=== PATIENT | male | born 2000 | race Caucasian/White ===

== ENCOUNTER 2023-02-11 12:23 | Inpatient (IN) | payer OTHER, SELFPAY ==
[2023-02-11 12:35] VITALS: BP 186/117; PULSE 82; RESP 18; TEMP 36.7; O2SAT 94
--- NOTE | 2023-02-11 13:12 | W.ED.PSYCHS ---
HPI - Psych General: Chief Complaint: Psychiatric Symptoms Stated Complaint: SI Time Seen by Provider: 02/11/23 12:47 Source: patient and family Mode of arrival: ambulatory Limitations: no limitations History of Present Illness: This patient was brought to the emergency department by his parents because of their concern about his over the past several weeks and more noticeably over the past 10 to 15 days he has had both auditory and visual hallucinations. He also told them that there is been suggestions of these voices telling him to harm himself but he has no specific plan of carrying that suggestion out. There is been symptoms of altered reality with section of normal domestic animals not being of this world as well as other alterations in his perceptions. He has been living in his own domicile but is now been staying with the parents for the last couple of days. They still feel that he is safe to be left alone. He has no history of mental health issues in the past had a normal childhood and young adulthood. Recently had a break-up with a long-term live-in girlfriend. There is a question of whether he may have had a exposure to methamphetamine recently. He does use marijuana fairly regularly. Minimal if any alcohol use. No energy drinks or other stimulants to include [id number] cough and cold medications etc. He has not any recent travel, recent trauma, recent illness. There is no family history of mental health disorders. MD complaint: feels depressed and altered mental status Duration: intermittent Context: not taking psychiatric medications Associated psychiatric symptoms: depression, auditory hallucinations and visual hallucinations Associated symptoms: Reports auditory hallucinations, visual hallucinations and depression Review of Systems Const: Denies: fever(s) or chills Eyes: Denies: change in vision or blurry vision ENMT: Denies: odynophagia, nasal discharge or nasal congestion Card: Denies: chest pain or palpitations Resp: Denies: dyspnea, productive cough or non-productive cough GI: Denies: abdominal pain, nausea, vomiting or diarrhea : Denies: flank pain, difficulty urinating, dysuria or urinary frequency Musc: Denies: neck pain, back pain or extremity pain Skin/Breast: Denies: rash Neuro: Denies: headache(s), numbness in extremities or weakness in extremities Psych: Reports: depression, sleeping less, paranoia, visual hallucinations and auditory hallucinations Physical Exam Narrative: EXAM NARRATIVE: Very depressed affect. Does make good eye contact. Speech is very monotonous and low volume. Const: COMMON NORMALS: no acute distress, average body habitus, patient oriented x3 and alert GENERAL APPEARANCE: cooperative HENMT: COMMON NORMALS: normocephalic, atraumatic and Normal nasal mucous membranes and turbinates present HEAD & SCALP: normocephalic and atraumatic NOSE: Normal nasal mucous membranes and turbinates present Eye: COMMON NORMALS: Equal, round and reactive pupils present, EOMs intact bilaterally and conjunctivae normal CONJUNCTIVA: Yes conjunctivae normal PUPIL: Yes Equal, round and reactive pupils present Neck/C-Spine: COMMON NORMALS: full ROM, no lymphadenopathy and supple Chest: COMMONS NORMALS: normal inspection of the chest Resp: COMMON NORMALS: normal respiratory effort, No retractions, No use of accessory muscles and clear to auscultation bilaterally EFFORT & INSPECTION: Yes able to speak in complete sentences AUSCULTATION: clear to auscultation bilaterally Cardio: COMMON NORMALS: regular rate, regular rhythm, No murmurs present (Cardio) and Peripheral pulses 2+ throughout RATE: regular rate RHYTHM: regular rhythm PERIPHERAL PULSES: Peripheral pulses 2+ throughout GI: COMMON NORMALS: Normal to inspection, nondistended, normoactive bowel sounds present, Soft to palpation and non-tender PALPATION: Yes Soft to palpation : COMMON NORMALS: Yes no CVA tenderness BLADDER/KIDNEY EXAM: Yes no CVA tenderness Back/Pelvis: COMMON NORMALS: no CVA tenderness, thoracic and lumbar spine normal to inspection, no thoracic nor lumbar tenderness and thoraco-lumbar ROM normal Extremity: COMMON NORMALS: normal to inspection, full ROM, capillary refill normal, no clubbing, cyanosis or edema and no calf tenderness Neuro: COMMON NORMALS: patient oriented x3, moves all extremities, no focal motor deficits and no sensory deficits noted SENSORIUM/ORIENTATION: Yes alert CRANIAL NERVES: Yes CN normal except as noted Psych: ATTITUDE: Yes Withdrawn affect present ACTIVITY/MOTOR BEHAVIOR: Yes appropriate eye contact SPEECH: Yes soft MOOD & AFFECT: Yes depressed mood and Yes Flat affect present THOUGHT PROCESS: Circumstantial thought process present THOUGHT CONTENT: Yes Hallucination(s) present INSIGHT: Limited insight present (Psych) JUDGEMENT: Limited judgement present (Psych) Skin: COMMON NORMALS: no rashes or lesions noted and no wounds GENERAL SKIN EXAM: no rashes or lesions noted Course Consultations: Consultation #1: Discussed with Dr. Hernandez and reviewed his current history and findings. Plan will be to admit him on a psych hold pending further evaluation and delineation of his clinical condition. Time: 16:46 Vital Signs: Vital signs: Vital Signs Temperature 98.1 F 02/11/23 12:35 Pulse Rate 82 02/11/23 12:35 Respiratory Rate 18 02/11/23 12:35 Blood Pressure 186/117 02/11/23 12:35 Pulse Oximetry 94 02/11/23 12:35 Oxygen Delivery Me thod Room Air 02/11/23 12:35 MDM - Psych Medical Decision Making This patient was transported to the emergency department by his parents who are concerned about changes in his overall mental status over the past several weeks. There was symptoms of both auditory and visual hallucinations which the patient readily admitted. Is no prior history of mental health disorders or similar symptoms. There had been a recent break-up with a significant other but otherwise no other major events in his life. There was a history of marijuana use but no other street drug use other than admitted single episode of methamphetamine use. His clinical examination revealed a patient who is had depressed affect but made good eye contact and was cooperative but did have some loosening of associations readily admitted to hallucinations with some thought insertion but no action or any thought insertion suggestions. His his clinical exam otherwise did not suggest any stigmata of medical condition otherwise. His screening laboratories are reassuring urine drug screen only was positive for marijuana. At this point in time no evidence of any precluding medical disorder that would prevent him from being placed on a medical hold in the mental health unit for further evaluation. Case was discussed with attending psychiatrist who agreed to the plan of care. Lab Data I reviewed the patient's lab results. 02/11/23 13:16 02/11/23 13:16 Laboratory Results WBC 9.90 10^3/uL (3.29-11.43) 02/11/23 13:16 RBC 5.35 10^6/uL (3.85-5.65) 02/11/23 13:16 Hgb 16.10 g/dL (11.27-16.99) 02/11/23 13:16 Hct 48.3 % (37-53) 02/11/23 13:16 MCV 90.3 fl (82-101) 02/11/23 13:16 MCH 30.1 pg (27-33) 02/11/23 13:16 MCHC 33.3 g/dL (30-55) 02/11/23 13:16 RDW 12.1 % (12.1-15.1) 02/11/23 13:16 Plt Count 339 10^3/cmm (157-399) 02/11/23 13:16 MPV 10.2 fL (7.4-10.4) 02/11/23 13:16 Neut % (Auto) 73.3 % 02/11/23 13:16 Lymph % (Auto) 19.0 % 02/11/23 13:16 [place] % (Auto) 5.8 % 02/11/23 13:16 Eos % (Auto) 0.3 % 02/11/23 13:16 Baso % (Auto) 1.2 % 02/11/23 13:16 Neut # (Auto) 7.26 10^3/uL (1.8-7.7) 02/11/23 13:16 Lymph # (Auto) 1.9 10^3/uL (0.8-4.8) 02/11/23 13:16 [place] # (Auto) 0.6 10^3/uL (0.2-0.9) 02/11/23 13:16 Eos # (Auto) 0.0 10^3/uL (0.0-0.8) 02/11/23 13:16 Baso # (Auto) 0.1 10^3/uL (0.0-0.1) 02/11/23 13:16 Nucleated RBC % (auto) 0 % 02/11/23 13:16 Nucleated RBCs # 0.0 /100WBC 02/11/23 13:16 Sodium 139 mmol/L (136-145) 02/11/23 13:16 Potassium 4.0 mmol/L (3.5-5.1) 02/11/23 13:16 Chloride 106 mmol/L (98-107) 02/11/23 13:16 Carbon Dioxide 23 mmol/L (22-29) 02/11/23 13:16 Anion Gap 14.0 (5-19) 02/11/23 13:16 BUN 7 mg/dL (6-20) 02/11/23 13:16 Creatinine 0.7 mg/dL (0.7-1.2) 02/11/23 13:16 GFR Calculation 142.4 mL/min (90-130) H 02/11/23 13:16 Glucose 110 mg/dL (65-115) 02/11/23 13:16 Calculated Osmolality 287 mOsm/kg (285-295) 02/11/23 13:16 Calcium 9.3 mg/dL (8.5-10.5) 02/11/23 13:16 Total Bilirubin 0.5 mg/dL (0.15-1.2) 02/11/23 13:16 AST 12 U/L (0-40) 02/11/23 13:16 ALT 15 U/L (0-41) 02/11/23 13:16 Alkaline Phosphatase 61 U/L (40-130) 02/11/23 13:16 Total Protein 7.2 g/dL (6.6-8.7) 02/11/23 13:16 Albumin 4.5 g/dL (3.5-5.2) 02/11/23 13:16 Globulin 2.7 g/dL (1.3-4.6) 02/11/23 13:16 Salicylates < 0.3 mg/dL (3-10) L 02/11/23 13:16 Urine Opiates Screen Negative ng/mL (Negative) 02/11/23 16:01 Acetaminophen < 5.0 ug/mL (10-30) L 02/11/23 13:16 Ur Barbiturates Screen Negative ng/mL (Negative) 02/11/23 16:01 Ur Phencyclidine Scrn Negative ng/mL (Negative) 02/11/23 16:01 Ur Amphetamines Screen Negative ng/mL (Negative) 02/11/23 16:01 U Benzodiazepines Scrn Negative ng/mL (Negative) 02/11/23 16:01 Urine Cocaine Screen Negative ng/mL (Negative) 02/11/23 16:01 U Marijuana (THC) Screen Positive ng/mL (Negative) H 02/11/23 16:01 No radiology studies performed this visit Discharge Plan Discharge Patient Disposition: Admitted As Inpatient Clinical Impression: Acute psychosis Condition: Stable Prescriptions: No Action No Known Home Medications Referrals: Michelle Kevin DO [Primary Care Provider] - Coding Level of Care Code ED Director Of Market Research for [employer] Hardwick
[2023-02-11 13:26] LABS: Basophils # 0.1 10^3/uL (0.0-0.1); Basophils % 1.2 %; Eosinophils % 0.3 %; Hematocrit 48.3 % (37-53); Lymphocytes # 1.9 10^3/uL (0.8-4.8); Mean Corpuscular HGB Conc 33.3 g/dL (30-55); Mean Corpuscular Hemoglobin 30.1 pg (27-33); Mean Corpuscular Volume 90.3 fl (82-101); Mean Platelet Volume 10.2 fL (7.4-10.4); Monocytes # 0.6 10^3/uL (0.2-0.9); Monocytes % 5.8 %; Neutrophils # 7.26 10^3/uL (1.8-7.7); Neutrophils % 73.3 %; Nucleated Red Blood Cells % 0 %; Platelet Count 339 10^3/cmm (157-399); Red Blood Count 5.35 10^6/uL (3.85-5.65); Red Cell Distribution Width 12.1 % (12.1-15.1)
[2023-02-11 13:41] LABS: Alanine Aminotransferase 15 U/L (0-41); Albumin Level 4.5 g/dL (3.5-5.2); Alkaline Phosphatase 61 U/L (40-130); Aspartate Amino Transferase 12 U/L (0-40); Blood Urea Nitrogen 7 mg/dL (6-20); Calcium 9.3 mg/dL (8.5-10.5); Carbon Dioxide 23 mmol/L (22-29); Chloride 106 mmol/L (98-107); Globulin 2.7 g/dL (1.3-4.6); Glomerular Filtration Rate 142.4 mL/min (90-130); Glucose 110 mg/dL (65-115); Osmolality Calculated 287 mOsm/kg (285-295); Sodium 139 mmol/L (136-145); Total Bilirubin 0.5 mg/dL (0.15-1.2); Total Protein 7.2 g/dL (6.6-8.7)
[2023-02-11 13:45] LABS: Acetaminophen < 5.0 ug/mL (10-30); Salicylate < 0.3 mg/dL (3-10)
[2023-02-11 16:15] LABS: Amphetamines Screen Urine Negative (Negative); Barbiturates Screen Urine Negative (Negative); Benzodiazepines Screen Urine Negative (Negative); Cocaine Screen Urine Negative (Negative); Opiate Screen Urine Negative (Negative); PCP Screen Urine Negative (Negative); THC Screen Urine Positive (Negative)
[2023-02-11 16:49] VITALS: BP 167/103; PULSE 76; RESP 16; TEMP 36.4; O2SAT 99
--- NOTE | 2023-02-11 17:03 | ED.C_ITS ---
HPI - Psych 2 General: Chief Complaint: Psychiatric Symptoms Stated Complaint: SI Time Seen by Provider: 02/11/23 12:47 Source: patient and family Mode of arrival: ambulatory History of Present Illness: Duration: intermittent Course 2 Vital Signs: Vital signs: Vital Signs Temperature 98.1 F 02/11/23 12:35 Pulse Rate 82 02/11/23 12:35 Respiratory Rate 18 02/11/23 12:35 Blood Pressure 186/117 02/11/23 12:35 Pulse Oximetry 94 02/11/23 12:35 Oxygen Delivery Me thod Room Air 02/11/23 12:35 MDM - Psych Lab Data 02/11/23 13:16 02/11/23 13:16 Laboratory Results WBC 9.90 10^3/uL (3.29-11.43) 02/11/23 13:16 RBC 5.35 10^6/uL (3.85-5.65) 02/11/23 13:16 Hgb 16.10 g/dL (11.27-16.99) 02/11/23 13:16 Hct 48.3 % (37-53) 02/11/23 13:16 MCV 90.3 fl (82-101) 02/11/23 13:16 MCH 30.1 pg (27-33) 02/11/23 13:16 MCHC 33.3 g/dL (30-55) 02/11/23 13:16 RDW 12.1 % (12.1-15.1) 02/11/23 13:16 Plt Count 339 10^3/cmm (157-399) 02/11/23 13:16 MPV 10.2 fL (7.4-10.4) 02/11/23 13:16 Neut % (Auto) 73.3 % 02/11/23 13:16 Lymph % (Auto) 19.0 % 02/11/23 13:16 [place] % (Auto) 5.8 % 02/11/23 13:16 Eos % (Auto) 0.3 % 02/11/23 13:16 Baso % (Auto) 1.2 % 02/11/23 13:16 Neut # (Auto) 7.26 10^3/uL (1.8-7.7) 02/11/23 13:16 Lymph # (Auto) 1.9 10^3/uL (0.8-4.8) 02/11/23 13:16 [place] # (Auto) 0.6 10^3/uL (0.2-0.9) 02/11/23 13:16 Eos # (Auto) 0.0 10^3/uL (0.0-0.8) 02/11/23 13:16 Baso # (Auto) 0.1 10^3/uL (0.0-0.1) 02/11/23 13:16 Nucleated RBC % (auto) 0 % 02/11/23 13:16 Nucleated RBCs # 0.0 /100WBC 02/11/23 13:16 Sodium 139 mmol/L (136-145) 02/11/23 13:16 Potassium 4.0 mmol/L (3.5-5.1) 02/11/23 13:16 Chloride 106 mmol/L (98-107) 02/11/23 13:16 Carbon Dioxide 23 mmol/L (22-29) 02/11/23 13:16 Anion Gap 14.0 (5-19) 02/11/23 13:16 BUN 7 mg/dL (6-20) 02/11/23 13:16 Creatinine 0.7 mg/dL (0.7-1.2) 02/11/23 13:16 GFR Calculation 142.4 mL/min (90-130) H 02/11/23 13:16 Glucose 110 mg/dL (65-115) 02/11/23 13:16 Calculated Osmolality 287 mOsm/kg (285-295) 02/11/23 13:16 Calcium 9.3 mg/dL (8.5-10.5) 02/11/23 13:16 Total Bilirubin 0.5 mg/dL (0.15-1.2) 02/11/23 13:16 AST 12 U/L (0-40) 02/11/23 13:16 ALT 15 U/L (0-41) 02/11/23 13:16 Alkaline Phosphatase 61 U/L (40-130) 02/11/23 13:16 Total Protein 7.2 g/dL (6.6-8.7) 02/11/23 13:16 Albumin 4.5 g/dL (3.5-5.2) 02/11/23 13:16 Globulin 2.7 g/dL (1.3-4.6) 02/11/23 13:16 Salicylates < 0.3 mg/dL (3-10) L 02/11/23 13:16 Urine Opiates Screen Negative ng/mL (Negative) 02/11/23 16:01 Acetaminophen < 5.0 ug/mL (10-30) L 02/11/23 13:16 Ur Barbiturates Screen Negative ng/mL (Negative) 02/11/23 16:01 Ur Phencyclidine Scrn Negative ng/mL (Negative) 02/11/23 16:01 Ur Amphetamines Screen Negative ng/mL (Negative) 02/11/23 16:01 U Benzodiazepines Scrn Negative ng/mL (Negative) 02/11/23 16:01 Urine Cocaine Screen Negative ng/mL (Negative) 02/11/23 16:01 U Marijuana (THC) Screen Positive ng/mL (Negative) H 02/11/23 16:01 Discharge Plan Discharge Patient Disposition: Admitted As Inpatient Admit Provider: Joel Hernandez Clinical Impression: Acute psychosis Condition: Stable Coding Level of Care Code ED [employer] Operator for [employer] Hardwick
[2023-02-11] MEDS: LORazepam 1 mg Tablet PO (18:42)
[2023-02-11 20:25] VITALS: BP 172/92
[2023-02-11] MEDS: OLANZapine 5 mg ODT PO (20:41)
[2023-02-11 20:49] VITALS: BMI 22.6
--- NOTE | 2023-02-11 21:10 | PC.NURSE ---
Pt arrived to [facility] w/RN and security at side @ approxmately 1934. Pt appears disheveled, anxious, and responding to internal stimuli. Pt had extreme difficulty staying on task, admission assessment completed.
[2023-02-12] VITALS (7 sets, daily range): BP systolic 131–177; BP diastolic 66–110; PULSE 88–102; RESP 16–18; TEMP 36.3; O2SAT 94–100
--- NOTE | 2023-02-12 07:51 | W.PM.NPUH&PS ---
Providers/Chief Complaint Admitting Physician: Joel Hernandez MD Primary Care Provider: Michelle Kevin DO Chief Complaint: MITTAL HPI [facility] History of Present Illness Barry Carl is a 22 year old male who presented to the emergency department with the following report: Chief Complaint: Psychiatric Symptoms Stated Complaint: SI Time Seen by Provider: 02/11/23 12:47 Source: patient and family Mode of arrival: ambulatory Limitations: no limitations History of Present Illness: This patient was brought to the emergency department by his parents because of their concern about his over the past several weeks and more noticeably over the past 10 to 15 days he has had both auditory and visual hallucinations. He also told them that there is been suggestions of these voices telling him to harm himself but he has no specific plan of carrying that suggestion out. There is been symptoms of altered reality with section of normal domestic animals not being of this world as well as other alterations in his perceptions. He has been living in his own domicile but is now been staying with the parents for the last couple of days. They still feel that he is safe to be left alone. He has no history of mental health issues in the past had a normal childhood and young adulthood. Recently had a break-up with a long-term live-in girlfriend. There is a question of whether he may have had a exposure to methamphetamine recently. He does use marijuana fairly regularly. Minimal if any alcohol use. No energy drinks or other stimulants to include [id number] cough and cold medications etc. He has not any recent travel, recent trauma, recent illness. There is no family history of mental health disorders. MD complaint: feels depressed and altered mental status Duration: intermittent Context: not taking psychiatric medications Associated psychiatric symptoms: depression, auditory hallucinations and visual hallucinations Associated symptoms: Reports auditory hallucinations, visual hallucinations and depression. He was admitted to the neuropsychiatric unit for definitive treatment of those issues. He presented today as a very poor historian mostly secondary confusion and likely lack of confidence in what is real with reports of psychosis but most answers lacking confidence and clarity. He reported that he has not been admitted psychiatrically before and denied outpatient services. He denied previous medications. When asked why he was here he reported different stuff that is hard for some people to believe. He reported that he smokes cigarettes maybe a pack a day, drinks alcohol sometimes and marijuana sometimes. He denied cocaine, methamphetamine and opiates but he seemed to indicate that he is not possibly done some of these things recently but did not seem to want to go into it. He denied ever going to a rehab and reported that he did have a DUI in March 2021 possibly. He reports he may have had a paraphernalia charges well. We did speak briefly about the methamphetamine exposure being important because it could possibly cause this presentation even with a negative drug screen which his drug screen was only positive for marijuana. When asked about his current situation he reports that he has been having strange thinking. For a few days now that he reported it could have been longer which we discussed his parents suggesting that this has been going on for couple weeks now. He denies any history of depression but does endorse that he has had issues with anxiety but could not explain when asked about symptoms consistent with psychosis he seem to answer to the affirmative but would vacillate between no and the answer of here and there. He gave an answer to paranoia, hearing voices, the possibility of people reading his mind and other strange beliefs he would not go into. Much of this time he answered questions in a way that seemed unclear or confused. He talked about sometimes counting things but did not give answers of clarity for OCD. He did answer positive to nightmares and/or flashbacks but he seemed confused about the question and later denied any traumatic events or exposures. We discussed the risks, benefits and alternatives of a trial of Invega and he understood and agreed to proceed as is documented in this note as we discussed Invega being a medication that could help expedite the alleviation of psychotic symptoms. Psychiatric history: As above. Substance abuse history: As above. Family history: He denied any knowledge of any suicide attempts or completions or any mental health challenges but he did report addiction existing in his family. Developmental history: He reports that he believes he was a month premature but did not know anything else about sequela of that. He endorsed thinking that he reached his developmental milestones on time learning to walk and talk appropriately. He denied speech therapy but did report possibly having some assistance in school when he was younger. He did not know what an IEP was. Psychosocial history: He reports his parents were together when he was born and that they have 5 children together that are products of that union. He reports that he is the oldest and he has 1 brother and 3 sisters. He reports that his father has 2 other children grown a boy that are his half siblings. He reports that his childhood was normal and denied any knowledge of neglect, emotional, physical or sexual abuse. He denied any child protective service involvement or any traumas in his life. He reports that he did not graduate from high school dropping out in 2019 because he did not do well with the COVID arrangements. He reports he tried to get his GED but has not attained that yet. He endorses being a heterosexual with his longest relationship being 3 years. He has never been , he has never had children, has never been in the and reports that he believes in God. 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 He reports that he is currently living in a house with his parents and 4 other siblings. Legal history: He reports that he went to long-term overnight once. Medical history: He endorsed having hypertension sometimes. Meds [facility] Home Medications Medication Instructions Recorded Confirmed Last Taken Type No Known Home Medications 02/11/23 02/11/23 Unknown History Allergies Allergy/AdvReac Type Severity Reaction Status Date / Time No Known Allergies Allergy Unverified 02/11/23 13:54 Mental Status Exam MSE Comments: This is a slender white male in hospital scrubs with limited grooming and eye contact. No abnormal movements except for psychomotor retardation. Mostly cooperative with exam in mild distress. Speech was decreased rate and volume with some significant pauses possibly consistent with thought blocking. Mood described as pretty decent so far today, affect subdued. Thought process linear. Thought content: Patient denied suicidal or homicidal ideation, there were no delusions reported but he clearly seemed guarded and paranoid, he endorsed auditory hallucinations. Attention and concentration were limited and memory was somewhat reliable but at other times he struggled with memory but none were formally tested. He is alert and oriented times person and place. Insight, judgment and impulse control are impaired. Vitals/I&O/Wt Last Vital Signs Temp 97.6 F 02/11/23 16:49 Pulse 88 02/12/23 06:00 Resp 16 02/12/23 06:00 BP 131/66 02/12/23 06:00 Pulse Ox 100 02/12/23 06:00 O2 Del Method Room Air 02/12/23 06:00 Weight last 48 hrs Weight 67.358 kg Weight 67.358 kg Data NPU 02/11/23 13:16 02/11/23 13:16 A&P Assessment and plan (1) Acute psychosis: (2) Cannabis use disorder: Plan This is a 22-year-old white male with no known significant history of mental health challenges with some addiction exposure of unclear substances and frequency with a positive UDS for cannabis but concerns for exposures for methamphetamine who presents with altered mental status and psychosis open to a trial of medication. 1. Start Invega 6 mg p.o. daily. 2. Continue every 15 minute checks for safety. 3. Encourage individual, group and milieu therapy. 4. Encourage sober living treatment after discharge at the highest level of care to which he is willing to commit. 5. Obtain collateral information possibly from parents and ex-girlfriend. Involuntary Hold Information 96 Hour Hold: 96 Hour Involuntary Admission: Yes 96 Hour Hold Ending Date: 02/17/23 96 Hour Hold Ending Time: 00:01 Attestations [facility] Medical Necessity Statement*: Inpatient hospitalization is medically necessary and the clinically appropriate intervention at this time. We will monitor/initiate medications and make changes as indicated. He will be in the hospital for over 2 midnights. Likely length of stay 4 to 6 days. Coding Level of Care Code Acute Code for [facility] Diagnoses Acute psychosis F23 Cannabis use disorder F12.90
[2023-02-12] MEDS: paliperidone ER 6 mg Tablet PO (10:45)
[2023-02-12] MEDS: nicotine 2 mg Gum BUCCAL ×3 (11:41→18:53)
--- NOTE | 2023-02-12 14:40 | PC.NURSE ---
NOTIFIED DOCTOR TARI OF PT INCREASED BP BP @1423 177/102 , MANUAL BP TAKEN @1435 160/110 DOCTOR ORDERED 0.1MG CLONINDINE AND RECHECK IN ONE HOUR AFTER ADMINISTERING MEDICAITON.
[2023-02-12] MEDS: cloNIDine 0.1 mg Tablet PO (14:53)
[2023-02-12] MEDS: trazodone 50 mg Tablet PO (20:27)
[2023-02-13 06:00] VITALS: BP 166/103; PULSE 108; RESP 18; O2SAT 98
[2023-02-13] MEDS: paliperidone ER 6 mg Tablet PO (08:20)
[2023-02-13] MEDS: nicotine 2 mg Gum BUCCAL ×3 (08:45→19:44)
--- NOTE | 2023-02-13 11:21 | W.PM.NPUPNS ---
Subjective NPU Subjective: Patient presents today reporting that he is feeling all right. He reports that he thinks that the psychosis he is experiencing is secondary to methamphetamines. He reports that he thinks he might of done it 3 days ago but we both acknowledge that there was no positive amphetamines in his screen. We did discuss use of methamphetamine could certainly cause this presentation. We discussed his 96-hour hold and a plan to monitor him for improvement on the medication. He denied any side effects to the medication. Mental Status Exam MSE Comments: This is a slender white male in hospital scrubs with limited grooming and eye contact. No abnormal movements except for psychomotor retardation. Mostly cooperative with exam in mild distress. Speech was decreased rate and volume with some significant pauses possibly consistent with thought blocking. Mood described as okay, affect subdued. Thought process linear. Thought content: Patient denied suicidal or homicidal ideation, there were no delusions reported but he clearly seemed guarded and paranoid, he endorsed auditory hallucinations. Attention and concentration were limited and memory was somewhat reliable but at other times he struggled with memory but none were formally tested. He is alert and oriented times person and place. Insight, judgment and impulse control are impaired. Vitals/I&O/Wt Last Vital Signs Temp 97.3 F L 02/12/23 14:00 Pulse 108 H 02/13/23 06:00 Resp 18 02/13/23 06:00 BP 166/103 02/13/23 06:00 Pulse Ox 98 02/13/23 06:00 O2 Del Method Room Air 02/12/23 14:00 Weight last 48 hrs Weight 67.358 kg Weight 67.358 kg Data NPU 02/11/23 13:16 02/11/23 13:16 A&P Assessment and plan (1) Acute psychosis: (2) Cannabis use disorder: Plan This is a 22-year-old white male with no known significant history of mental health challenges with some addiction exposure of unclear substances and frequency with a positive UDS for cannabis but concerns for exposures for methamphetamine who presents with altered mental status and psychosis open to a trial of medication. 1. Started Invega 6 mg p.o. daily. 2. Continue every 15 minute checks for safety. 3. Encourage individual, group and milieu therapy. 4. Encourage sober living treatment after discharge at the highest level of care to which he is willing to commit. 5. Obtain collateral information possibly from parents and ex-girlfriend. Involuntary Hold Information 96 Hour Hold: 96 Hour Involuntary Admission: Yes 96 Hour Hold Ending Date: 02/17/23 96 Hour Hold Ending Time: 00:01 Attestations NPU Medical Necessity Statement*: Inpatient hospitalization is medically necessary and the clinically appropriate intervention at this time. We will monitor/initiate medications and make changes as indicated. Likely length of stay 3-5 days. Coding Level of Care Code Acute Code for [facility] Fwd Diagnoses Acute psychosis F23 Cannabis use disorder F12.90
[2023-02-13 14:00] VITALS: BP 161/96; PULSE 109; RESP 16; TEMP 36.8; O2SAT 100
--- NOTE | 2023-02-13 16:16 | PC.NURSE ---
Upon visiting, patient's parents expressed that they believed he was doing a bit better. They stated they believed his girlfriend may have given him some bad drugs. They said they believed this because she left for a week, came back for 2 days to stay with their son, and then when she left he started acting crazy.
[2023-02-13] MEDS: trazodone 50 mg Tablet PO (19:44)
[2023-02-13 20:21] VITALS: BP 179/118; PULSE 68; RESP 18; O2SAT 99
[2023-02-14 06:00] VITALS: RESP 16
[2023-02-14] MEDS: paliperidone ER 6 mg Tablet PO (08:09)
[2023-02-14] MEDS: nicotine 2 mg Gum BUCCAL ×2 (12:28→19:28)
[2023-02-14 14:00] VITALS: BP 169/88; PULSE 101; RESP 18; TEMP 36.8; O2SAT 100
--- NOTE | 2023-02-14 17:30 | P.NPUPN_ITS ---
Subjective NPU 2 Subjective: Patient presented today essentially unchanged per staff reports except for maybe a little bit more verbal this is also notable on direct examination. He continues to vacillate between statements that he may have taken methamphetamine and being certain that he did not take methamphetamine. We discussed the fact that it appears that he is uncertain of what happened continuing to raise concerns that this is in fact an organic psychosis. We discussed getting some collateral information from parents about what baseline looks like. He continues to endorse ongoing symptoms. He denies any side effects of the medication thus far. Mental Status Exam 2 MSE Comments: This is a slender white male in hospital scrubs with limited grooming and eye contact. No abnormal movements except for psychomotor retardation. Mostly cooperative with exam in mild distress. Speech was decreased rate and volume with some significant pauses possibly consistent with thought blocking. Mood described as okay, affect subdued. Thought process linear. Thought content: Patient denied suicidal or homicidal ideation, there were no delusions reported but he clearly seemed guarded and paranoid, he endorsed auditory hallucinations. Attention and concentration were limited and memory was somewhat reliable but at other times he struggled with memory but none were formally tested. He is alert and oriented times person and place. Insight, judgment and impulse control are impaired. Vitals/I&O/Wt Last Vital Signs Temp 98.3 F 02/13/23 14:00 Pulse 68 02/13/23 20:21 Resp 16 02/14/23 06:00 BP 179/118 02/13/23 20:21 Pulse Ox 99 02/13/23 20:21 O2 Del Method Room Air 02/13/23 20:21 Data NPU 02/11/23 13:16 02/11/23 13:16 A&P Assessment and plan (1) Acute psychosis: (2) Cannabis use disorder: Plan This is a 22-year-old white male with no known significant history of mental health challenges with some addiction exposure of unclear substances and frequency with a positive UDS for cannabis but concerns for exposures for methamphetamine who presents with altered mental status and psychosis open to a trial of medication. 1. Started Invega 6 mg p.o. daily. 2. Continue every 15 minute checks for safety. 3. Encourage individual, group and milieu therapy. 4. Encourage sober living treatment after discharge at the highest level of care to which he is willing to commit. 5. Obtain collateral information possibly from parents and ex-girlfriend. Involuntary Hold Information 2 96 Hour Hold: 96 Hour Involuntary Admission: Yes 96 Hour Hold Ending Date: 02/17/23 96 Hour Hold Ending Time: 00:01 Attestations NPU 2 Medical Necessity Statement*: Inpatient hospitalization is medically necessary and the clinically appropriate intervention at this time. We will monitor/initiate medications and make changes as indicated. Likely length of stay 3-5 days. Coding Level of Care Code Acute Code for [facility] Fwd Diagnoses Acute psychosis F23 Cannabis use disorder F12.90
[2023-02-14 20:33] VITALS: BP 171/122; PULSE 100; RESP 18; TEMP 36.9; O2SAT 98
[2023-02-14] MEDS: trazodone 50 mg Tablet PO (20:33)
[2023-02-15 06:00] VITALS: BP 140/92; PULSE 103; RESP 16; O2SAT 98
[2023-02-15] MEDS: paliperidone ER 6 mg Tablet PO (08:02)
[2023-02-15] MEDS: nicotine 2 mg Gum BUCCAL ×4 (08:02→21:15)
[2023-02-15 14:00] VITALS: BP 150/96; PULSE 99; RESP 17; TEMP 36.8; O2SAT 98
[2023-02-15] MEDS: nicotine 4 mg lozenge MUCOUS MEM (14:23)
--- NOTE | 2023-02-15 16:24 | P.NPUPN_ITS ---
Subjective NPU 2 Subjective: Patient presented today reporting that he is feeling a little better. He seemed to have a little less isolation per staff and direct observation. He continued to endorse some cognitive slowing we will continue to say now that he does not believe that he took any drugs which we discussed means that he has a primary psychosis that we will need ongoing treatment. He denied any side effects of the medication. Mental Status Exam 2 MSE Comments: This is a slender white male in hospital scrubs with limited grooming and eye contact. No abnormal movements except for psychomotor retardation. Mostly cooperative with exam in mild distress. Speech was decreased rate and volume with some significant pauses possibly consistent with less thought blocking. Mood described as a little better, affect subdued. Thought process linear. Thought content: Patient denied suicidal or homicidal ideation, there were no delusions reported but he clearly seemed guarded and paranoid, he endorsed auditory hallucinations. Attention and concentration were limited and memory was somewhat reliable but at other times he struggled with memory but none were formally tested. He is alert and oriented times person and place. Insight, judgment and impulse control are impaired. Vitals/I&O/Wt Last Vital Signs Temp 98.2 F 02/15/23 14:00 Pulse 99 02/15/23 14:00 Resp 17 02/15/23 14:00 BP 150/96 02/15/23 14:00 Pulse Ox 98 02/15/23 14:00 O2 Del Method Room Air 02/15/23 06:00 Data NPU 02/11/23 13:16 02/11/23 13:16 A&P Assessment and plan (1) Acute psychosis: (2) Cannabis use disorder: Plan This is a 22-year-old white male with no known significant history of mental health challenges with some addiction exposure of unclear substances and frequency with a positive UDS for cannabis but concerns for exposures for methamphetamine who presents with altered mental status and psychosis open to a trial of medication. 1. Started Invega 6 mg p.o. daily. 2. Continue every 15 minute checks for safety. 3. Encourage individual, group and milieu therapy. 4. Encourage sober living treatment after discharge at the highest level of care to which he is willing to commit. 5. Obtain collateral information possibly from parents and ex-girlfriend. Involuntary Hold Information 2 96 Hour Hold: 96 Hour Involuntary Admission: Yes 96 Hour Hold Ending Date: 02/17/23 96 Hour Hold Ending Time: 00:01 Attestations NPU 2 Medical Necessity Statement*: Inpatient hospitalization is medically necessary and the clinically appropriate intervention at this time. We will monitor/initiate medications and make changes as indicated. Likely length of stay 2-4 days. Coding Level of Care Code Acute Code for [facility] Fwd Diagnoses Acute psychosis F23 Cannabis use disorder F12.90
[2023-02-15 19:48] VITALS: BP 149/81; PULSE 82; RESP 16; TEMP 36.8; O2SAT 100
[2023-02-16 06:00] VITALS: BP 123/71; PULSE 95; RESP 16; O2SAT 100
[2023-02-16] MEDS: paliperidone ER 6 mg Tablet PO (08:00)
[2023-02-16] MEDS: nicotine 2 mg Gum BUCCAL ×5 (08:00→21:23)
[2023-02-16 14:00] VITALS: BP 144/76; PULSE 77; RESP 18; TEMP 36.9; O2SAT 99
--- NOTE | 2023-02-16 18:00 | P.NPUPN_ITS ---
Subjective NPU 2 Subjective: Patient presented today reporting that he is feeling a little better each day. We discussed the 21-day hold was filed as he identified him needing some time to be able to fully recover from the psychosis. He denied any side effects of the medication and reports he is willing to stay until we feel he is better. Mental Status Exam 2 MSE Comments: This is a slender white male in hospital scrubs with limited grooming and eye contact. No abnormal movements except for psychomotor retardation. More cooperative with exam in mild distress. Speech was decreased rate and volume with less pauses possibly consistent with less thought blocking. Mood described as better, affect slightly subdued. Thought process linear. Thought content: Patient denied suicidal or homicidal ideation, there were no delusions reported but he clearly seemed guarded and paranoid, he endorsed resolving auditory hallucinations. Attention and concentration were limited and memory was somewhat reliable but at other times he struggled with memory but none were formally tested. He is alert and oriented times person and place. Insight, judgment and impulse control are impaired. Vitals/I&O/Wt Last Vital Signs Temp 98.5 F 02/16/23 14:00 Pulse 77 02/16/23 14:00 Resp 18 02/16/23 14:00 BP 144/76 02/16/23 14:00 Pulse Ox 99 02/16/23 14:00 O2 Del Method Room Air 02/16/23 14:00 Data NPU 02/11/23 13:16 02/11/23 13:16 A&P Assessment and plan (1) Acute psychosis: (2) Cannabis use disorder: Plan This is a 22-year-old white male with no known significant history of mental health challenges with some addiction exposure of unclear substances and frequency with a positive UDS for cannabis but concerns for exposures for methamphetamine who presents with altered mental status and psychosis open to a trial of medication. 1. Started Invega 6 mg p.o. daily. 2. Continue every 15 minute checks for safety. 3. Encourage individual, group and milieu therapy. 4. Encourage sober living treatment after discharge at the highest level of care to which he is willing to commit. 5. Obtain collateral information possibly from parents and ex-girlfriend. 6. Filed for 21-day hold. Involuntary Hold Information 2 96 Hour Hold: 96 Hour Involuntary Admission: Yes 96 Hour Hold Ending Date: 02/17/23 96 Hour Hold Ending Time: 00:01 Attestations NPU 2 Medical Necessity Statement*: Inpatient hospitalization is medically necessary and the clinically appropriate intervention at this time. We will monitor/initiate medications and make changes as indicated. Likely length of stay 2-4 days. Coding Level of Care Code Acute Code for [facility] Fwd Diagnoses Acute psychosis F23 Cannabis use disorder F12.90
[2023-02-16] MEDS: nicotine 4 mg lozenge MUCOUS MEM (18:41)
[2023-02-16 20:21] VITALS: BP 150/76; PULSE 116; RESP 18; TEMP 36.6; O2SAT 100
--- NOTE | 2023-02-17 06:44 | PC.NURSE ---
pt sleeping resp documented
[2023-02-17] MEDS: paliperidone ER 6 mg Tablet PO (07:42)
[2023-02-17] MEDS: nicotine 2 mg Gum BUCCAL ×2 (09:16→18:21)
--- NOTE | 2023-02-17 10:14 | P.NPUPN_ITS ---
Subjective NPU 2 Subjective: Patient presented today reporting that he is doing all right. We discussed him starting to have some responsiveness in his affect moving away from the very robotic stoic presentation that he had. We discussed that hearing today that he did not attend and agree that he needs more time but not the 21 days that will be issued. He reports that he is optimistic about doing well on the medication and being able to return to work. Mental Status Exam 2 MSE Comments: This is a slender white male in hospital scrubs with limited grooming and eye contact. No abnormal movements except for psychomotor retardation. More cooperative with exam in mild distress. Speech was decreased rate and volume with less pauses possibly consistent with less thought blocking. Mood described as better, affect slightly subdued. Thought process linear. Thought content: Patient denied suicidal or homicidal ideation, there were no delusions reported but he clearly seemed guarded and paranoid, he endorsed resolving auditory hallucinations. Attention and concentration were limited and memory was somewhat reliable but at other times he struggled with memory but none were formally tested. He is alert and oriented times person and place. Insight, judgment and impulse control are impaired. Vitals/I&O/Wt Last Vital Signs Temp 97.8 F 02/16/23 20:21 Pulse 116 H 02/16/23 20:21 Resp 18 02/16/23 20:21 BP 150/76 02/16/23 20:21 Pulse Ox 100 02/16/23 20:21 O2 Del Method Room Air 02/16/23 20:21 Data NPU 02/11/23 13:16 02/11/23 13:16 A&P Assessment and plan (1) Acute psychosis: (2) Cannabis use disorder: Plan This is a 22-year-old white male with no known significant history of mental health challenges with some addiction exposure of unclear substances and frequency with a positive UDS for cannabis but concerns for exposures for methamphetamine who presents with altered mental status and psychosis open to a trial of medication. 1. Started Invega 6 mg p.o. daily. 2. Continue every 15 minute checks for safety. 3. Encourage individual, group and milieu therapy. 4. Encourage sober living treatment after discharge at the highest level of care to which he is willing to commit. 5. Obtain collateral information possibly from parents and ex-girlfriend. 6. Filed for 21-day hold. 21-day hold hearing held at 11:30 AM. Placed on 21- day hold today, 02/17/2023. Involuntary Hold Information 2 96 Hour Hold: 96 Hour Involuntary Admission: Yes 96 Hour Hold Ending Date: 02/17/23 96 Hour Hold Ending Time: 00:01 Attestations NPU 2 Medical Necessity Statement*: Inpatient hospitalization is medically necessary and the clinically appropriate intervention at this time. We will monitor/initiate medications and make changes as indicated. Likely length of stay 2-4 days. Coding Level of Care Code Acute Code for [facility] Fwd Diagnoses Acute psychosis F23 Cannabis use disorder F12.90
[2023-02-17 14:00] VITALS: BP 110/73; PULSE 65; RESP 16; TEMP 36.6; O2SAT 97
[2023-02-17] MEDS: nicotine 4 mg lozenge MUCOUS MEM ×2 (16:12→20:27)
[2023-02-17 20:55] VITALS: BP 153/97; PULSE 103; RESP 18; TEMP 36.8; O2SAT 100
[2023-02-18 06:00] VITALS: RESP 16
--- NOTE | 2023-02-18 08:07 | W.PM.NPUPNS ---
Subjective NPU Subjective: Patient presented today reporting that he is doing okay. He denies any side effect from the medication and is reporting feeling better each day. We discussed the possibility of increasing the medication tomorrow but he said he was open to what ever the best plan was. Continues to interact with his peers and is less isolative per staff reports. Reports are that he is sleeping fine and eating appropriately. Mental Status Exam MSE Comments: This is a slender white male in hospital scrubs with limited grooming and eye contact. No abnormal movements except for psychomotor retardation. More cooperative with exam in mild distress. Speech was decreased rate and volume with less pauses possibly consistent with less thought blocking. Mood described as better, affect slightly subdued. Thought process linear. Thought content: Patient denied suicidal or homicidal ideation, there were no delusions reported but he clearly seemed guarded and paranoid, he endorsed resolving auditory hallucinations. Attention and concentration were limited and memory was somewhat reliable but at other times he struggled with memory but none were formally tested. He is alert and oriented times person and place. Insight, judgment and impulse control are impaired. Vitals/I&O/Wt Last Vital Signs Temp 98.2 F 02/17/23 20:55 Pulse 103 H 02/17/23 20:55 Resp 16 02/18/23 06:00 BP 153/97 02/17/23 20:55 Pulse Ox 100 02/17/23 20:55 O2 Del Method Room Air 02/17/23 14:00 Data NPU 02/11/23 13:16 02/11/23 13:16 A&P Assessment and plan (1) Acute psychosis: (2) Cannabis use disorder: Plan This is a 22-year-old white male with no known significant history of mental health challenges with some addiction exposure of unclear substances and frequency with a positive UDS for cannabis but concerns for exposures for methamphetamine who presents with altered mental status and psychosis open to a trial of medication. 1. Started Invega 6 mg p.o. daily. 2. Continue every 15 minute checks for safety. 3. Encourage individual, group and milieu therapy. 4. Encourage sober living treatment after discharge at the highest level of care to which he is willing to commit. 5. Obtain collateral information possibly from parents and ex-girlfriend. 6. Filed for 21-day hold. 21-day hold hearing held at 11:30 AM. Placed on -day hold 02/17/2023. Involuntary Hold Information 96 Hour Hold: 96 Hour Involuntary Admission: Yes 96 Hour Hold Ending Date: 02/17/23 96 Hour Hold Ending Time: 00:01 Attestations NPU Medical Necessity Statement*: Inpatient hospitalization is medically necessary and the clinically appropriate intervention at this time. We will monitor/initiate medications and make changes as indicated. Likely length of stay 2-4 days. Coding Level of Care Code Acute Code for [facility] Fwd Diagnoses Acute psychosis F23 Cannabis use disorder F12.90
[2023-02-18] MEDS: nicotine 4 mg lozenge MUCOUS MEM ×2 (09:12→18:25)
[2023-02-18] MEDS: paliperidone ER 6 mg Tablet PO (09:12)
[2023-02-18] MEDS: nicotine 2 mg Gum BUCCAL ×3 (11:53→21:01)
[2023-02-18 14:00] VITALS: BP 145/72; PULSE 108; RESP 16; TEMP 36.3; O2SAT 96
[2023-02-18 20:47] VITALS: BP 142/101; PULSE 120; RESP 18; TEMP 36.4; O2SAT 97
[2023-02-19 06:00] VITALS: BP 140/75; PULSE 99; RESP 18; O2SAT 97
[2023-02-19] MEDS: nicotine 2 mg Gum BUCCAL ×3 (08:30→16:07)
[2023-02-19] MEDS: paliperidone ER 6 mg Tablet PO (08:30)
--- NOTE | 2023-02-19 13:04 | P.NPUPN_ITS ---
Subjective NPU 2 Subjective: Patient presented today reporting that he is feeling fine. He continues to get support and visits from his dad. He reports that the medication seems to be helping. We discussed seeing clear improvement as he is less isolative and more social. He denies any side effects to any medication. He reports that he is hopeful that he can discharge sooner rather than later. He is fully aware that he is on a 21-day hold. Mental Status Exam 2 MSE Comments: This is a slender white male in hospital scrubs with limited grooming and eye contact. No abnormal movements except for psychomotor retardation. More cooperative with exam in mild distress. Speech was decreased rate and volume with less pauses possibly consistent with less thought blocking. Mood described as better, affect slightly subdued. Thought process linear. Thought content: Patient denied suicidal or homicidal ideation, there were no delusions reported but he clearly seemed guarded and paranoid, he endorsed resolving auditory hallucinations. Attention and concentration were limited and memory was somewhat reliable but at other times he struggled with memory but none were formally tested. He is alert and oriented times person and place. Insight, judgment and impulse control are impaired. Vitals/I&O/Wt Last Vital Signs Temp 97.6 F 02/18/23 20:47 Pulse 99 02/19/23 06:00 Resp 18 02/19/23 06:00 BP 140/75 02/19/23 06:00 Pulse Ox 97 02/19/23 06:00 O2 Del Method Room Air 02/18/23 14:00 Weight last 48 hrs Weight 72.575 kg Data NPU 02/11/23 13:16 02/11/23 13:16 A&P Assessment and plan (1) Acute psychosis: (2) Cannabis use disorder: Plan This is a 22-year-old white male with no known significant history of mental health challenges with some addiction exposure of unclear substances and frequency with a positive UDS for cannabis but concerns for exposures for methamphetamine who presents with altered mental status and psychosis open to a trial of medication. 1. Started Invega 6 mg p.o. daily. Increase Invega to 9 mg p.o. daily. 2. Continue every 15 minute checks for safety. 3. Encourage individual, group and milieu therapy. 4. Encourage sober living treatment after discharge at the highest level of care to which he is willing to commit. 5. Obtain collateral information possibly from parents and ex-girlfriend. 6. Filed for 21-day hold. 21-day hold hearing held at 11:30 AM. Placed on 21- day hold 02/17/2023. Involuntary Hold Information 2 96 Hour Hold: 96 Hour Involuntary Admission: Yes 96 Hour Hold Ending Date: 02/17/23 96 Hour Hold Ending Time: 00:01 Attestations NPU 2 Medical Necessity Statement*: Inpatient hospitalization is medically necessary and the clinically appropriate intervention at this time. We will monitor/initiate medications and make changes as indicated. Likely length of stay 2-4 days. Coding Level of Care Code Acute Code for [facility] Fwd Diagnoses Acute psychosis F23 Cannabis use disorder F12.90
[2023-02-19] MEDS: nicotine 4 mg lozenge MUCOUS MEM ×3 (13:50→20:11)
[2023-02-19 14:00] VITALS: BP 146/80; PULSE 83; RESP 16; TEMP 36.6; O2SAT 100
[2023-02-19 19:43] VITALS: BP 164/94; PULSE 112; RESP 20; TEMP 36.4; O2SAT 98
[2023-02-19] MEDS: trazodone 50 mg Tablet PO (20:10)
[2023-02-20 06:00] VITALS: BP 122/81; PULSE 98; RESP 18; O2SAT 98
--- NOTE | 2023-02-20 07:38 | P.NPUPN_ITS ---
Subjective NPU 2 Subjective: Patient presented today reporting that he is feeling all right. He continues to have significant negative symptoms per staff and direct observation. He reports that the increase in the medication has been fine and he denies any specific side effects. We discussed the long-acting injectable and he reported feeling confident he could take the medication daily. We agreed we would speak with his family to get their take on the situation. We talked about the likelihood of discharge in the next 48 hours. Mental Status Exam 2 MSE Comments: This is a slender white male in hospital scrubs with improved grooming and eye contact. No abnormal movements except for mild psychomotor retardation. More cooperative with exam in no acute distress. Speech was decreased rate and volume with less pauses. Mood described as better, affect slightly subdued. Thought process linear. Thought content: Patient denied suicidal or homicidal ideation, there were no delusions reported but he clearly seemed guarded and paranoid, he endorsed resolving auditory hallucinations. Attention and concentration were limited and memory was somewhat reliable but at other times he struggled with memory but none were formally tested. He is alert and oriented times person and place. Insight, judgment and impulse control are limited, but improving. Vitals/I&O/Wt Last Vital Signs Temp 97.6 F 02/19/23 19:43 Pulse 98 02/20/23 06:00 Resp 18 02/20/23 06:00 BP 122/81 02/20/23 06:00 Pulse Ox 98 02/20/23 06:00 O2 Del Method Room Air 02/19/23 19:43 Weight last 48 hrs Weight 72.575 kg Data NPU 02/11/23 13:16 02/11/23 13:16 A&P Assessment and plan (1) Acute psychosis: (2) Cannabis use disorder: Plan This is a 22-year-old white male with no known significant history of mental health challenges with some addiction exposure of unclear substances and frequency with a positive UDS for cannabis but concerns for exposures for methamphetamine who presents with altered mental status and psychosis open to a trial of medication. 1. Started Invega 6 mg p.o. daily. Increase Invega to 9 mg p.o. daily. Patient resistant to the idea of long-acting injectable will speak with family about their thoughts. 2. Continue every 15 minute checks for safety. 3. Encourage individual, group and milieu therapy. 4. Encourage sober living treatment after discharge at the highest level of care to which he is willing to commit. 5. Obtain collateral information possibly from parents and ex-girlfriend. 6. Filed for 21-day hold. 21-day hold hearing held at 11:30 AM. Placed on 21- day hold 02/17/2023. Involuntary Hold Information 2 96 Hour Hold: 96 Hour Involuntary Admission: Yes 96 Hour Hold Ending Date: 02/17/23 96 Hour Hold Ending Time: 00:01 Attestations NPU 2 Medical Necessity Statement*: Inpatient hospitalization is medically necessary and the clinically appropriate intervention at this time. We will monitor/initiate medications and make changes as indicated. Likely length of stay 1-3 days. Coding Level of Care Code Acute Code for [facility] Fwd Diagnoses Acute psychosis F23 Cannabis use disorder F12.90
[2023-02-20] MEDS: paliperidone ER 9 mg Tablet PO (08:08)
[2023-02-20] MEDS: nicotine 2 mg Gum BUCCAL (08:43)
[2023-02-20] MEDS: nicotine 4 mg lozenge MUCOUS MEM ×3 (13:02→20:07)
[2023-02-20 14:00] VITALS: BP 137/79; PULSE 92; RESP 16; TEMP 36.6; O2SAT 100
[2023-02-20 20:25] VITALS: BP 157/80; PULSE 112; RESP 18; TEMP 36.4; O2SAT 100
[2023-02-21 06:00] VITALS: BP 136/84; PULSE 91; RESP 18; O2SAT 100
[2023-02-21] MEDS: paliperidone ER 9 mg Tablet PO (07:36)
[2023-02-21] MEDS: nicotine 2 mg Gum BUCCAL ×2 (07:36→18:46)
[2023-02-21] MEDS: nicotine 4 mg lozenge MUCOUS MEM ×4 (10:13→20:16)
[2023-02-21 14:00] VITALS: BP 148/90; PULSE 116; RESP 15; TEMP 36.8; O2SAT 98
[2023-02-21] MEDS: paliperidone palmitate 234 mg Syringe IM (16:56)
--- NOTE | 2023-02-21 18:10 | P.NPUPN_ITS ---
Subjective NPU 2 Subjective: Patient presented today reporting that he is doing okay. Met with the parents that were very supportive of the idea of the long-acting injectable Invega Sustenna we talked about the possibility of increasing to Invega Hanka and also discussed with Barry. We discussed the likelihood of schizophrenia as the diagnosis if the story of no illicit drugs continues to be accurate. Discussed need for sobriety in addition to taking the medication daily and then ultimately getting the monthly, possibly quarterly or half year injections. He denied any side effects of the medications. We discussed the plan for discharge Mental Status Exam 2 MSE Comments: This is a slender white male in hospital scrubs with improved grooming and eye contact. No abnormal movements except for mild psychomotor retardation. More cooperative with exam in no acute distress. Speech was decreased rate and volume with less pauses. Mood described as better, affect slightly subdued. Thought process linear. Thought content: Patient denied suicidal or homicidal ideation, there were no delusions reported but he clearly seemed guarded and paranoid, he endorsed resolving auditory hallucinations. Attention and concentration were limited and memory was somewhat reliable but at other times he struggled with memory but none were formally tested. He is alert and oriented times person and place. Insight, judgment and impulse control are limited, but improving. Vitals/I&O/Wt Last Vital Signs Temp 97.4 F L 02/21/23 20:08 Pulse 105 H 02/21/23 20:08 Resp 18 02/21/23 20:08 BP 149/80 02/21/23 20:08 Pulse Ox 100 02/21/23 20:08 O2 Del Method Room Air 02/21/23 20:08 Data NPU 02/11/23 13:16 02/11/23 13:16 A&P Assessment and plan (1) Acute psychosis: (2) Cannabis use disorder: Plan This is a 22-year-old white male with no known significant history of mental health challenges with some addiction exposure of unclear substances and frequency with a positive UDS for cannabis but concerns for exposures for methamphetamine who presents with altered mental status and psychosis open to a trial of medication. 1. Started Invega 6 mg p.o. daily. Increase Invega to 9 mg p.o. daily. Patient was resistant to the idea of long-acting injectable but work with family and did get the Invega Sustenna 234 mg IM to the deltoid loading dose with plan for next injection 02/28/2023 as an outpatient. 2. Continue every 15 minute checks for safety. 3. Encourage individual, group and milieu therapy. 4. Encourage sober living treatment after discharge at the highest level of care to which he is willing to commit. 5. Obtain collateral information possibly from parents and ex-girlfriend. 6. Filed for 21-day hold. 21-day hold hearing held at 11:30 AM. Placed on 21- day hold 02/17/2023. Plan for discharge tomorrow Involuntary Hold Information 2 96 Hour Hold: 96 Hour Involuntary Admission: Yes 96 Hour Hold Ending Date: 02/17/23 96 Hour Hold Ending Time: 00:01 Attestations NPU 2 Medical Necessity Statement*: Inpatient hospitalization is medically necessary and the clinically appropriate intervention at this time. We will monitor/initiate medications and make changes as indicated. Likely length of stay 1-3 days. Coding Level of Care Code Acute Code for Chg Fwd Diagnoses Acute psychosis F23 Cannabis use disorder F12.90
[2023-02-21 20:08] VITALS: BP 149/80; PULSE 105; RESP 18; TEMP 36.3; O2SAT 100
[2023-02-21] MEDS: trazodone 50 mg Tablet PO (20:16)
[2023-02-22 06:00] VITALS: BP 134/86; PULSE 75; RESP 18; O2SAT 97
[2023-02-22] MEDS: nicotine 2 mg Gum BUCCAL ×2 (07:25→12:25)
[2023-02-22] MEDS: paliperidone ER 9 mg Tablet PO (07:25)
[2023-02-22] MEDS: nicotine 4 mg lozenge MUCOUS MEM (10:24)
--- NOTE | 2023-02-22 11:54 | W.PM.NPUDCS ---
Diagnoses at Discharge Discharge Diagnosis (1) Acute psychosis: Status: Acute (2) Cannabis use disorder: Status: Acute Reason for Visit Reason for Visit: MITTAL Involuntary Hold Information 96 Hour Hold: 96 Hour Involuntary Admission: Yes 96 Hour Hold Ending Date: 02/17/23 96 Hour Hold Ending Time: 00:01 Mental Status Exam MSE Comments: This is a slender white male in hospital scrubs with improved grooming and eye contact. No abnormal movements except for mild psychomotor retardation. More cooperative with exam in no acute distress. Speech was decreased rate and volume with less pauses. Mood described as better, affect slightly subdued. Thought process linear. Thought content: Patient denied suicidal or homicidal ideation, there were no delusions reported but he clearly seemed guarded and paranoid, he endorsed resolving auditory hallucinations. Attention and concentration were limited and memory was somewhat reliable but at other times he struggled with memory but none were formally tested. He is alert and oriented times person and place. Insight, judgment and impulse control are limited, but improving. Discharge Data Studies Completed and Pending: Laboratory Results WBC 9.90 10^3/uL (3.2 9-11.43) 02/11/23 13:16 RBC 5.35 10^6/uL (3.8 5-5.65) 02/11/23 13:16 Hgb 16.10 g/dL (11.27 -16.99) 02/11/23 13:16 Hct 48.3 % (37-53) 02/11/23 13:16 MCV 90.3 fl (82-101) 02/11/23 13:16 MCH 30.1 pg (27-33) 02/11/23 13:16 MCHC 33.3 g/dL (30-55) 02/11/23 13:16 RDW 12.1 % (12.1-15.1 ) 02/11/23 13:16 Plt Count 339 10^3/cmm (157 -399) 02/11/23 13:16 MPV 10.2 fL (7.4-10.4 ) 02/11/23 13:16 Neut % (Auto) 73.3 % 02/11/23 13:16 Lymph % (Auto) 19.0 % 02/11/23 13:16 [place] % (Auto) 5.8 % 02/11/23 13:16 Eos % (Auto) 0.3 % 02/11/23 13:16 Baso % (Auto) 1.2 % 02/11/23 13:16 Neut # (Auto) 7.26 10^3/uL (1.8 -7.7) 02/11/23 13:16 Lymph # (Auto) 1.9 10^3/uL (0.8- 4.8) 02/11/23 13:16 [place] # (Auto) 0.6 10^3/uL (0.2- 0.9) 02/11/23 13:16 Eos # (Auto) 0.0 10^3/uL (0.0- 0.8) 02/11/23 13:16 Baso # (Auto) 0.1 10^3/uL (0.0- 0.1) 02/11/23 13:16 Nucleated RBC % (a uto) 0 % 02/11/23 13:16 Nucleated RBCs # 0.0 /100WBC 02/11/23 13:16 Sodium 139 mmol/L (136-1 45) 02/11/23 13:16 Potassium 4.0 mmol/L (3.5-5 .1) 02/11/23 13:16 Chloride 106 mmol/L (98-10 7) 02/11/23 13:16 Carbon Dioxide 23 mmol/L (22-29) 02/11/23 13:16 Anion Gap 14.0 (5-19) 02/11/23 13:16 BUN 7 mg/dL (6-20) 02/11/23 13:16 Creatinine 0.7 mg/dL (0.7-1. 2) 02/11/23 13:16 GFR Calculation 142.4 mL/min (90- 130) H 02/11/23 13:16 Glucose 110 mg/dL (65-115 ) 02/11/23 13:16 Calculated Osmolal ity 287 mOsm/kg (285- 295) 02/11/23 13:16 Calcium 9.3 mg/dL (8.5-10 .5) 02/11/23 13:16 Total Bilirubin 0.5 mg/dL (0.15-1 .2) 02/11/23 13:16 AST 12 U/L (0-40) 02/11/23 13:16 ALT 15 U/L (0-41) 02/11/23 13:16 Alkaline Phosphata se 61 U/L (40-130) 02/11/23 13:16 Total Protein 7.2 g/dL (6.6-8.7 ) 02/11/23 13:16 Albumin 4.5 g/dL (3.5-5.2 ) 02/11/23 13:16 Globulin 2.7 g/dL (1.3-4.6 ) 02/11/23 13:16 Salicylates < 0.3 mg/dL (3-10 ) L 02/11/23 13:16 Urine Opiates Scre en Negative ng/mL (N egative) 02/11/23 16:01 Acetaminophen < 5.0 ug/mL (10-3 0) L 02/11/23 13:16 Ur Barbiturates Sc reen Negative ng/mL (N egative) 02/11/23 16:01 Ur Phencyclidine S crn Negative ng/mL (N egative) 02/11/23 16:01 Ur Amphetamines Sc reen Negative ng/mL (N egative) 02/11/23 16:01 U Benzodiazepines Scrn Negative ng/mL (N egative) 02/11/23 16:01 Urine Cocaine Scre en Negative ng/mL (N egative) 02/11/23 16:01 U Marijuana (THC) Screen Positive ng/mL (N egative) H 02/11/23 16:01 Vitals: Last Vital Signs Temp 97.4 F L 02/21/23 20:08 Pulse 75 02/22/23 06:00 Resp 18 02/22/23 06:00 BP 134/86 02/22/23 06:00 Pulse Ox 97 02/22/23 06:00 O2 Del Method Room Air 02/22/23 06:00 Discharge Plan Discharge Patient Disposition: Home Condition: Stable Prescriptions: New paliperidone 9 mg Tablet Extended Release 24hr 9 mg PO DAILY 13 Days Qty: 13 0RF Rx Instructions: Take for 13 days and then discontinue transitioning to long-acting injectable Invega Sustenna 156 mg/mL syringe 156 mg IM Q30D Qty: 1 2RF Rx Instructions: Next injection 02/28/2023 to deltoid loading dose and then as scheduled. No Action No Known Home Medications Discharge Orders: Discharge Order (Routine); Ordered 12/13/23 Ordered By: Joel Hernandez Referrals: Michelle Kevin DO [Primary Care Provider] - Discharge Diet: Regular Discharge Activity: Resume usual activity Patient Instructions: Opioid Safety Discharge Attestations NPU Time Spent in Discharge Care*: less than 30 min Specific Discharge Activities: Specific discharge activities: educating patient, discussing with disability case manager/social workers/dc planners, documenting/other paperwork and evaluating patient/reviewing data Coding Level of Care Code Acute Code for Chg Fwd Diagnoses Acute psychosis F23 Cannabis use disorder F12.90
[2023-02-22 12:36] VITALS: BP 134/86; PULSE 75; RESP 18; O2SAT 97
== END 2023-02-22 14:00 | disposition home or self-care (01) | DRG 885 ==
LOC: ER 16:48 → NP 16:55
PROVIDERS: Admitting Provider Psychiatry & Neurology Psychiatry; Emergency Provider Emergency Medicine; PCP Family Medicine; Visit Provider Psychiatry & Neurology Psychiatry
DX: F20.9 Schizophrenia, unspecified (principal); F12.90 Cannabis use, unspecified, uncomplicated; F10.90 Alcohol use, unspecified, uncomplicated; F17.210 Nicotine dependence, cigarettes, uncomplicated
CPT/HCPCS: 36415; 80053; 80306; 80307; 85025; 96372; 97150; 97165; 99285

== ENCOUNTER → 2023-04-06 13:24 | Outpatient (BNVA) | payer OTHER, SELFPAY | PROVIDERS: PCP Family Medicine; Visit Provider Emergency Medicine | DX: I16.0 Hypertensive urgency (principal); R41.82 Altered mental status, unspecified | CPT/HCPCS: 93005 ==

== ENCOUNTER 2023-04-06 17:24 | Emergency (ER) | payer OTHER, SELFPAY ==
[2023-04-06] VITALS (11 sets, daily range): BP systolic 161–182; BP diastolic 91–107; PULSE 97–112; RESP 15–27; TEMP 37.2; O2SAT 94–97
--- NOTE | 2023-04-06 17:29 | ECG_ITS ---
[facility] Test Date: 2023-04-06 Pat Name: Barry Carl Department: Room: Gender: Male Family Law Paralegal: : 2000 Requested By: Toma Horvath Order Number: [id number] Pedro Luis MD: Ravi Layne M.D. Measurements Intervals [place] Rate: 97 P: 49 AR: 120 QRS: 59 QRSD: 113 T: 32 QT: 340 QTc: 433 Interpretive Statements SINUS RHYTHM MODERATE INTRAVENTRICULAR CONDUCTION DELAY [110+ ms QRS DURATION] No previous ECG available for comparison Electronically Signed On 04-07-2023 6:50:25 CHAIN PULLER by Ravi Layne M.D. [id number]
[2023-04-06 17:49] LABS: Basophils # 0.1 10^3/uL (0.0-0.1); Basophils % 1.3 %; Eosinophils # 0.2 10^3/uL (0.0-0.8); Eosinophils % 1.6 %; Hematocrit 46.5 % (37-53); Lymphocytes # 2.1 10^3/uL (0.8-4.8); Lymphocytes % 19.4 %; Mean Corpuscular Hemoglobin 29.8 pg (27-33); Mean Corpuscular Volume 87.7 fl (82-101); Mean Platelet Volume 10.1 fL (7.4-10.4); Monocytes # 0.8 10^3/uL (0.2-0.9); Neutrophils # 7.56 10^3/uL (1.8-7.7); Neutrophils % 70.4 %; Nucleated Red Blood Cells % 0 %; Platelet Count 321 10^3/cmm (157-399); Red Cell Distribution Width 12.1 % (12.1-15.1); White Blood Count 10.73 10^3/uL (3.29-11.43)
[2023-04-06 18:06] LABS: Alanine Aminotransferase 19 U/L (0-41); Albumin Level 4.4 g/dL (3.5-5.2); Alkaline Phosphatase 75 U/L (40-130); Aspartate Amino Transferase 13 U/L (0-40); Blood Urea Nitrogen 14 mg/dL (6-20); Calcium 9.5 mg/dL (8.5-10.5); Carbon Dioxide 22 mmol/L (22-29); Chloride 105 mmol/L (98-107); Glomerular Filtration Rate 142.4 mL/min (90-130); Glucose 146 mg/dL (65-115); Osmolality Calculated 293 mOsm/kg (285-295); Sodium 140 mmol/L (136-145); Total Bilirubin 0.4 mg/dL (0.15-1.2); Total Protein 7.4 g/dL (6.6-8.7)
[2023-04-06 18:11] LABS: Anion Gap 17.1 (5-19); Potassium 4.1 mmol/L (3.5-5.1)
--- NOTE | 2023-04-06 18:43 | W.ED.GENADLT ---
HPI - General Adult General: Chief complaint: General Medical Stated complaint: elevated bp Time Seen by Provider: 04/06/23 17:59 History of Present Illness: Patient presents to the ER with diagnosis of elevated blood pressure. Patient is also complaining of being mildly confused and being out of it. Patient has had high blood pressure the last several visits to his PCP and through his last a open [employer] you we where he was discharged approximately February 22. Patient was started on Invega Sustenna and has had his second shot about 4 to 5 days ago. Patient's mother said his first shot helped really good until a couple days for his second shot was due and then he received a second shot and he has been groggy and slowed and out of it ever since. Patient's mother said they check his blood pressure at home it is always in the 160s to 170s over 100s and patient has never been on blood pressure medicine. Patient does still say he hears and sees things that is not there but they are not telling him to hurt himself or anyone else. Review of Systems General: Reports: 10 or more systems reviewed and unremarkable except in HPI and below PFSH ED PFSH: Medical History Psychiatric care Physical Exam Const: COMMON NORMALS: no acute distress, average body habitus, patient oriented x3, no limitations, healthy appearing, alert and well nourished HENMT: COMMON NORMALS: normocephalic, atraumatic, hearing grossly normal bilaterally, external ears normal, EAC's normal, Normal external nose present, moist oral mucous membranes and oropharynx normal HEAD & SCALP: normocephalic and atraumatic NOSE: Normal external nose present EXTERNAL EAR: Yes external ears normal EXTERNAL AUDITORY CANAL: EAC's normal Neck/C-Spine: COMMON NORMALS: full ROM, no lymphadenopathy, supple, no meningeal signs, no JVD and Thyroid normal THYROID: Thyroid normal Chest: COMMONS NORMALS: normal inspection of the chest and normal palpation of entire chest wall Resp: COMMON NORMALS: normal respiratory effort, No retractions, No use of accessory muscles and clear to auscultation bilaterally AUSCULTATION: clear to auscultation bilaterally Cardio: COMMON NORMALS: no JVD, regular rate, regular rhythm, S1 normal heart sound present, S2 normal heart sound present, No gallops present (Cardio), No clicks present (Cardio), No murmurs present (Cardio) and No rub (Cardio) RATE: regular rate RHYTHM: regular rhythm HEART SOUNDS: S1 normal heart sound present and S2 normal heart sound present GI: COMMON NORMALS: Normal to inspection, nondistended, normoactive bowel sounds present, Soft to palpation, non-tender, No hepatosplenomegaly present and no masses PALPATION: Yes Soft to palpation and Yes No hepatosplenomegaly present Neuro: COMMON NORMALS: patient oriented x3 SENSORIUM/ORIENTATION: Yes alert MENINGEAL SIGNS: Yes no meningeal signs Course Vital Signs: Vital signs: Vital Signs Temperature 99.0 F 04/06/23 17:31 Pulse Rate 99 04/06/23 20:00 Respiratory Rate 15 04/06/23 19:15 Blood Pressure 167/100 04/06/23 20:00 Pulse Oximetry 95 04/06/23 20:00 Oxygen Delivery Me thod Room Air 04/06/23 20:00 MDM - General Adult Medical Decision Making Patient lab work performed that included CBC CMP urine urine drug screen all of which was essentially benign except positive for benzodiazepines and THC. Patient's blood pressure was elevated approximately 180/110 and patient was given clonidine 0.1 mg p.o. x 2 doses as well as 10 mg of hydralazine IV x 1 this decreased his blood pressure to approximately 160/90. Patient be discharged home on 5 mg of lisinopril and is to follow-up with his family practice doctor in the next 7 to 10 days for further evaluation and treatment. Differential Diagnosis Hypertension, psychosis, Medical Records I reviewed the patient's medical records. Lab Data I reviewed the patient's lab results. 04/06/23 17:43 04/06/23 17:43 Laboratory Results WBC 10.73 10^3/uL (3.29-11.43) 04/06/23 17:43 RBC 5.30 10^6/uL (3.85-5.65) 04/06/23 17:43 Hgb 15.80 g/dL (11.27-16.99) 04/06/23 17:43 Hct 46.5 % (37-53) 04/06/23 17:43 MCV 87.7 fl (82-101) 04/06/23 17:43 MCH 29.8 pg (27-33) 04/06/23 17:43 MCHC 34.0 g/dL (30-55) 04/06/23 17:43 RDW 12.1 % (12.1-15.1) 04/06/23 17:43 Plt Count 321 10^3/cmm (157-399) 04/06/23 17:43 MPV 10.1 fL (7.4-10.4) 04/06/23 17:43 Neut % (Auto) 70.4 % 04/06/23 17:43 Lymph % (Auto) 19.4 % 04/06/23 17:43 [place] % (Auto) 7.0 % 04/06/23 17:43 Eos % (Auto) 1.6 % 04/06/23 17:43 Baso % (Auto) 1.3 % 04/06/23 17:43 Neut # (Auto) 7.56 10^3/uL (1.8-7.7) 04/06/23 17:43 Lymph # (Auto) 2.1 10^3/uL (0.8-4.8) 04/06/23 17:43 [place] # (Auto) 0.8 10^3/uL (0.2-0.9) 04/06/23 17:43 Eos # (Auto) 0.2 10^3/uL (0.0-0.8) 04/06/23 17:43 Baso # (Auto) 0.1 10^3/uL (0.0-0.1) 04/06/23 17:43 Nucleated RBC % (auto) 0 % 04/06/23 17:43 Nucleated RBCs # 0.0 /100WBC 04/06/23 17:43 Sodium 140 mmol/L (136-145) 04/06/23 17:43 Potassium 4.1 mmol/L (3.5-5.1) 04/06/23 17:43 Chloride 105 mmol/L (98-107) 04/06/23 17:43 Carbon Dioxide 22 mmol/L (22-29) 04/06/23 17:43 Anion Gap 17.1 (5-19) 04/06/23 17:43 BUN 14 mg/dL (6-20) 04/06/23 17:43 Creatinine 0.7 mg/dL (0.7-1.2) 04/06/23 17:43 GFR Calculation 142.4 mL/min (90-130) H 04/06/23 17:43 Glucose 146 mg/dL (65-115) H 04/06/23 17:43 Calculated Osmolality 293 mOsm/kg (285-295) 04/06/23 17:43 Calcium 9.5 mg/dL (8.5-10.5) 04/06/23 17:43 Total Bilirubin 0.4 mg/dL (0.15-1.2) 04/06/23 17:43 AST 13 U/L (0-40) 04/06/23 17:43 ALT 19 U/L (0-41) 04/06/23 17:43 Alkaline Phosphatase 75 U/L (40-130) 04/06/23 17:43 Total Protein 7.4 g/dL (6.6-8.7) 04/06/23 17:43 Albumin 4.4 g/dL (3.5-5.2) 04/06/23 17:43 Globulin 3.0 g/dL (1.3-4.6) 04/06/23 17:43 Urine Opiates Screen Negative ng/mL (Negative) 04/06/23 18:32 Ur Barbiturates Screen Negative ng/mL (Negative) 04/06/23 18:32 Ur Phencyclidine Scrn Negative ng/mL (Negative) 04/06/23 18:32 Ur Amphetamines Screen Negative ng/mL (Negative) 04/06/23 18:32 U Benzodiazepines Scrn Positive ng/mL (Negative) H 04/06/23 18:32 Urine Cocaine Screen Negative ng/mL (Negative) 04/06/23 18:32 U Marijuana (THC) Screen Positive ng/mL (Negative) H 04/06/23 18:32 All radiology interpretation(s) finalized by discharge EKG Data EKG 1: I personally reviewed and interpreted this EKG as follows: EKG interpretation date: 04/06/23 EKG interpretation time: 18:14 Prior EKG tracings: not available for review Interpretation: EKG showed ventricular rate 97 bpm, DE interval 120, QRS duration 113, QTc 394, sinus rhythm, moderate intraventricular conduction delay Discharge Plan Discharge Patient Disposition: Home Clinical Impression: Hypertension, Cannabis use disorder Condition: Stable Prescriptions: No Action Invega Sustenna 156 mg/mL syringe 156 mg IM Q30D Qty: 1 2RF Rx Instructions: Next injection 02/28/2023 to deltoid loading dose and then as scheduled. Discharge Orders: Discharge ED (Routine); Ordered 04/06/23 Ordered By: Charli Aviles Referrals: Michelle Kevin DO [Primary Care Provider] - 1 week Patient Instructions: Hypertension, Cannabis Use Disorder (ED) Activity Restrictions/Additional Instructions: He been prescribed a daily blood pressure medicine called lisinopril 5 mg please take 1 tab daily for your blood pressure and keep a blood pressure log. Please follow-up with your family practice physician within the next 7 to 10 days for further reevaluation and treatment and possible adjustment of your medicine. Coding Level of Care Code ED Sales Representative Graph[employer] for [employer]
[2023-04-06] MEDS: cloNIDine 0.1 mg Tablet PO ×2 (18:50→19:28)
[2023-04-06 19:22] LABS: Amphetamines Screen Urine Negative (Negative); Barbiturates Screen Urine Negative (Negative); Benzodiazepines Screen Urine Positive (Negative); Cocaine Screen Urine Negative (Negative); Opiate Screen Urine Negative (Negative); PCP Screen Urine Negative (Negative); THC Screen Urine Positive (Negative)
[2023-04-06] MEDS: hyDRALAzine 20 mg/mL INJ 1 mL 10 MG IVP (20:21)
== END 2023-04-06 21:27 | disposition home or self-care (01) ==
PROVIDERS: Emergency Medicine; Emergency Provider Emergency Medicine; PCP Family Medicine
DX: I10 Essential (primary) hypertension (principal); F12.90 Cannabis use, unspecified, uncomplicated
CPT/HCPCS: 36415; 80053; 80306; 85025; 93005; 96374; 99284; J0360

== ENCOUNTER → 2024-02-26 15:10 | Outpatient (BNVA) | payer OTHER, SELFPAY | PROVIDERS: PCP Family Medicine; Visit Provider Psychiatry & Neurology Psychiatry | DX: Z79.899 Other long term (current) drug therapy | CPT/HCPCS: 80053; 80061; 83036; 84443; 85025 ==